=== PATIENT | female | born 1945 | race Caucasian/White ===

== ENCOUNTER → 2016-10-11 | Day surgery (SDC) | payer OTHER ==
[~2016-10-11] VITALS: Ht 149.9 cm; Wt 79.3 kg
[~2016-10-11] MED LIST: *morphine SULFATE 8 MG/ML PERIprocedure ONLY ONE; ACETAMINOPHEN 1000 MG/100 ML VIAL IV ONE; ACETAMINOPHEN/HYDROcodone 325 MG/5 MG TAB PO PRN; ALL220TA PO; AMLO5TAB2 PO; AMLO5TAB22 PO; APREPITANT 40 MG CAP ONE; BIOT1TAB2 PO; BUPIVACAINE/EPINEPHRINE 0.25% PF 30 ML VIAL ONE; CHLORHEXIDINE GLUCONATE 2 % 1 PACK (2 CLOTHS) TOPICAL PRN; CHLORHEXIDINE GLUCONATE 4% SOLN 120 ML BTL TOPICAL SCH; CYCL1PAK PO; CYCL1TAB29 PO; DO NOT ADM ANY ANTICOAGULANT DRUGS PRN; FAMOTIDINE 20 MG/2 ML VIAL ONE; FISH1000 PO; FOSA70TA PO; GENTAMICIN SULFATE 80 MG/2 ML VIAL ONE; HYDR-2768 PO; HYDR25TA5 PO; ICAPCAP PO; INSULIN HUMAN REGULAR 1,000 UNITS/10 ML VIAL SQ PRN; LACTATED RINGER'S 1000 ML IV PRN; LEVO.15 PO; LISI40TA PO; LORTA5 PO; LOVA40TA PO; METF500 PO; METO25 PO; METO25TA3 PO; METOPROLOL TARTRATE 25 MG TAB PO PRN; MEVA40TA PO; MIDAZOLAM HCL 2 MG/2 ML VIAL ONE; MULT-135 PO; NEOSTIGMINE 3 MG/3 ML SYR IV ONE; ONDANSETRON HCL 4 MG/2 ML VIAL IV PUSH ONE; PANT40TA3 PO; POVIDONE IODINE 5% (ANTISEPSIS KIT) 4 APPLICATIONS EACH NARE PRN; PROPOFOL 200 MG/20 ML AMP IV ONE; PROT40TA PO; SERT-132 PO; SODIUM CHLORID 0.9% 500 ML IV PRN; TAB-TAB PO; TEMA15 PO; TEMA15CA PO; VITA10004 PO; ceFAZolin 1,000 MG/NS 100 ML IV SCH; ceFAZolin 2 GM PREMIX 50 ML ONE; ceFAZolin INJ 1,000 MG VIAL ONE; fentaNYL CITRATE 250 MCG/5 ML AMP ONE
[2016-10-11 07:34] VITALS: BP 150/64; PULSE 70; RESP 20; TEMP 97.4; O2SAT 98
[2016-10-11 13:08] VITALS: BP 149/52; PULSE 75; RESP 18; TEMP 97.6; O2SAT 98
--- NOTE | 2016-10-11 14:01 | EKG ---
Date Performed: 10/11/2016 Time Performed: 07:00:37 PTAGE: 70 years EKG: Sinus rhythm VOLTAGE CRITERIA FOR LVH NONSPECIFIC T-WAVE ABNORMALITY ABNORMAL ECG Compared to prior tracing no si gnificant change PREVIOUS TRACING : 11/08/2010 07.48 DOCTOR: Rah Boone Interpretating Date/Time 10/11/2016 13:58:20
--- NOTE | 2016-10-11 14:52 | RADRPT ---
EXAM DATE/TIME: 10/11/2016 08:36 [facility] COMPARISON: SPINE LUMBAR LATERAL ONLY, January 12, 2016, 15:01. INDICATIONS : Herniated disk. MEDICAL HISTORY : None. SURGICAL HISTORY : None. ENCOUNTER: Initial ACUITY: 1 day PAIN SCORE: Non-responsive. LOCATION: Bilateral lumbar spine FINDINGS: 3 coned-down lateral views lumbar spine were obtained intraoperatively and demonstrate a metal probe located posterior to the L2-3 interspace. There is mild retrolisthesis of L2 on L3. There is a grade 1 anterior spondylolisthesis of L4 on L5. There are mild degenerative disc changes the study is label ed assuming 5 nonrib-bearing lumbar-type vertebra. CONCLUSION: Limited localization exam. Isael Villeda MD on October 11, 2016 at 14:49 Board Certified Radiologist. This report was verified electronically.
--- NOTE | 2016-10-13 21:01 | MP ---
cc: SY HU M.D., [place] DATE OF SURGERY: 10/13/2016. PREOPERATIVE DIAGNOSIS: 1. L2-3 moderately severe spinal stenosis. 2. Status post L3-L5 decompressive laminectomy. 3. Left greater right lumbar radiculitis and left lower extremity weakness. 4. Lumbar spine degenerative disc disease and osteoarthritis. POSTOPERATIVE DIAGNOSIS: 1. L2-3 moderately severe spinal stenosis. 2. Status post L3-L5 decompressive laminectomy. 3. Left greater right lumbar radiculitis and left lower extremity weakness. 4. Lumbar spine degenerative disc disease and osteoarthritis. OPERATIVE PROCEDURE PERFORMED: L2-3 bilateral decompressive hemilaminectomy, foraminotomy, partial facetectomy with decompression of nerve roots. SURGEON: Jac Erazo MD. HEAD OF MEASUREMENT & INSIGHTS: Lizz Salinas PA-C. SPECIMEN: None. ESTIMATED BLOOD LOSS: 100 CC. COMPLICATIONS: None. ANESTHESIA: General. DRAINS: None. CONDITION: Stable. PLAN OF ACTIVITY: Per orders. DESCRIPTION OF THE PROCEDURE IN DETAIL: The patient was brought into the operating room and had satisfactory general endotracheal anesthesia by the department of anesthesia. The patient with her obesity was carefully transferred onto the [facility] spinal frame. All pressure points were well-padded. The lumbosacral spine was prepped and draped in the usual sterile manner. A localizing x-ray was used to confirm the L2-3 interspace. 0.25% Marcaine with epinephrine was used to anesthetize the operative site. A small midline incision was made over L2-3. Dissection was taken through skin and subcutaneous tissue to the scar tissue. Again localization was made at the L2-3 interspace. A bilateral decompressive hemilaminectomy was performed at L2-3. The patient was found to have moderate to moderately severe spinal stenosis with foraminal stenosis. Partial facetectomy and foraminotomies were also performed. Inspection of the left side was made. The patient was found to have a bulging disk but no evidence of a herniated nucleus pulposus. The patient found to have very satisfactory decompression of the neurological elements. The wound was irrigated with copious amounts of saline. The wound itself was dry. A small amount of Surgiflo was used. The patient was found to have complete hemostasis. The wound was closed in routine manner. The fascia was closed #2 TiCron suture. The subcutaneous was closed in layers with multiple 2-0 Vicryl sutures. The skin was approximated with interrupted 2-0 nylon. Sterile dressings were applied. The patient tolerated the procedure well and arrived in the recovery room in stable and satisfactory condition. MD JADIEL Holguin/LUCIAN /10:57 AM /8:44 PM
== END | disposition home or self-care (01) ==
LOC: HSDC 06:19
PROVIDERS: ATTEND Orthopaedic Surgery Orthopaedic Surgery of the Spine
DX: M51.16 Intervertebral disc disorders with radiculopathy, lumbar region (principal); M48.06 Spinal stenosis, lumbar region; I12.9 Hypertensive chronic kidney disease with stage 1 through stage 4 chronic kidney disease, or unspecified chronic kidney disease; N18.3 Chronic kidney disease, stage 3 (moderate); E78.5 Hyperlipidemia, unspecified; J45.909 Unspecified asthma, uncomplicated
CPT/HCPCS: 00630; 63030; 72020; 76000; 93005; J0131; J0690; J1580; J2250; J2270; J2405; J2710; J3010; J7120; J8501; 94150